=== PATIENT | female | born 1940 | race Caucasian/White ===

== ENCOUNTER → 2016-07-26 | Outpatient (CLI) | payer MEDICARE, BC ==
[~2016-07-26] MED LIST: APRESOLINE PO; ASPIRIN EC81 M1 PO; ASPIRIN PO; BYSTOLIC10 MG PO; BYSTOLIC20 MG PO; CALCIUM + D 6001 TA1 PO; CALTRATE 600+D PO; CARDIZEM SR PO; CATAPRES-TTS-20.2 MG PO; CERTAGEN PO; COREG PO; GLIPIZIDE10 MG PO; GLUCOTROL PO; HCTZ PO; HYDRALAZINE HCL50 MG PO; K-DUR20 ME1 PO; LEVOTHROID88 MCG PO; LIPITOR PO; LIPITOR40 MG PO; LISINOPRIL PO; LISINOPRIL-HCTZ1 T15 PO; LISINOPRIL-HCTZ1 T16 PO; METFORMIN HCL1000 M1 PO; METFORMIN PO; MICRO-K10 MEQ PO; NITROGYLCERIN SUBLINGUAL; NORVASC PO; NORVASC10 MG PO; POTASSIUM CHLO10 ME1 PO; SYNTHROID PO; UNITHROID PO; ZESTORETIC 20/21 TAB PO
--- NOTE | ~2016-07-26 | MY11 ---
[facility] A Service of [facility] RADIOLOGY TEXT RESULTS PATIENT: EVGENY COOK [facility] UNIT #: [id number] AGE: [address]: Mahamed Livingston MD SEX: F ORDER DR: [id number] [facility] [address] [place], [place] [address] [id number] O MR#: [id number] Acc #: [id number] NAME: EVGENY COOK : 1940 SEX: F STUDY DATE/TIME: 07/26/2016 12:43 [facility] ROOM: STUDY DESCRIPTION: MY Mammogram Screening Dig Giovany Attending Physician: Mahamed Livingston M.D. Ordering Physician: Mhaamed Livingston M.D. Primary Care Physician: Wally Persaud M.D. MEDICAL IMAGING REPORT This report is preliminary unless electronic signature is present EXAM Bilateral digital screening mammogram with CAD DATE 07/26/2016 HISTORY 76-year-old female with no personal or family history of breast cancer or current complaints. Has history of left breast cyst excision. COMPARISON Bilateral screening mammogram 07/04/2015, 06/17/2013 FINDINGS CC and MLO views were obtained of each breast utilizing digital technique and reviewed with an FDA-approved CAD device. Multiple round markers were placed over each breast denoting skin lesions. Linear marker was placed over the anterior upper outer left breast denoting surgical scars. Scattered fibroglandular densities are present bilaterally. No new or suspicious nodule is seen. Postsurgical architectural distortion in the left breast lateral hemisphere on the CC view, unchanged consistent with postsurgical finding. Benign vascular calcifications are present bilaterally. There are some scattered benign-appearing round calcifications in the superior hemisphere of the left breast on the MLO view. However, there is an indeterminate grouping of calcifications superior hemisphere left breast on the MLO view, denoted on online images by arrow. IMPRESSION 1. BIRADS 0. Additional imaging required. Indeterminate [facility] A Service of [facility] RADIOLOGY TEXT RESULTS PATIENT: EVGENY COOK [facility] 39 UNIT #: [id number] AGE: [address]: Mahamed Livingston MD SEX: F ORDER DR: microcalcifications in the superior left breast MLO view posterior third. Spot compression with high-resolution magnification views recommended the MLO plane, and if possible, extended craniocaudal lateral plane. Patients over the age of 40 are entered into a reminder system with target due date for the next mammogram. A result letter will also be sent to the patient. BIRADS: 0. Incomplete; Need additional imaging evaluation and/or prior mammograms for comparison. Dictated by... Radhika Yun M.D. THIS IS AN ELECTRONICALLY VERIFIED REPORT Radhika Yun M.D. at 07/27/2016 7:04 AM WOLFGANG/roberto carlos TD: 07/26/2016 15:11 JOB #: [id number] MEDICAL IMAGING REPORT Page 1 of 1 COPY
== END | disposition home or self-care (01) ==
LOC: CWCC 12:05
DX: Z12.31 Encounter for screening mammogram for malignant neoplasm of breast (principal); R92.0 Mammographic microcalcification found on diagnostic imaging of breast; Z98.890 Other specified postprocedural states
CPT/HCPCS: G0202

== ENCOUNTER → 2016-07-31 | Outpatient (CLI) | payer MEDICARE, BC ==
--- NOTE | ~2016-07-31 | MY7 ---
[facility] A Service of [facility] RADIOLOGY TEXT RESULTS PATIENT: EVGENY COOK LOCATION: [facility] : 39 UNIT #: [id number] AGE: [address]: Mahamed Livingston MD SEX: F ORDER DR: [id number] [facility] [address] [place], [place] [address] [id number] O MR#: [id number] Acc #: [id number] NAME: EVGENY COOK : 1940 SEX: F STUDY DATE/TIME: 07/31/2016 15:12 UNIT: [facility] ROOM: STUDY DESCRIPTION: MY Mammogram Dx Dig Lt Attending Physician: Mahamed Livingston M.D. Ordering Physician: Mahamed Livingston M.D. Primary Care Physician: Wally Persaud M.D. MEDICAL IMAGING REPORT This report is preliminary unless electronic signature is present EXAM Left breast digital diagnostic mammogram, 07/31/2016. HISTORY Indeterminate calcifications in the superior left breast on screening mammogram. COMPARISON Bilateral screening mammogram 06/17/2013, 07/06/2015. FINDINGS Spot magnification views were obtained of the superior left breast in the MLO plane, along with extended craniocaudal lateral views and true ML views of the left breast utilizing digital technique. A 3-mm grouping of indeterminate calcifications persists within the superior left breast, seen only in the MLO projection, not visualized in the extreme craniocaudal lateral projection. These are thought to be predominately coarse, but there is some linear configuration, and the findings are new in comparison to the 2013 exam. A benign etiology is favored. No associated mass lesion or architectural distortion is seen. IMPRESSION 1. Probably benign finding in left breast. Indeterminant small grouping of microcalcifications, superior left breast, seen only on the MLO view. Benign etiology favored. 6-month diagnostic left breast mammogram, to include spot magnification in the MLO plane, is recommended to document stability. The findings and recommendations were discussed directly with the patient in the Radiology Department today. She verbalized understanding. Patients over the age of 40 are entered into a reminder system with target due date for the next mammogram. A result letter will also be sent to the [facility] A Service of [facility] RADIOLOGY TEXT RESULTS PATIENT: EVGENY COOK LOCATION: [facility] : 39 UNIT #: [id number] AGE: [address]: Mahamed Livingston MD SEX: F ORDER DR: patient. LEFT BREAST BIRADS: 3 Probably benign finding; short interval followup suggested. Dictated by... Radhika Yun M.D. THIS IS AN ELECTRONICALLY VERIFIED REPORT Radhika Yun M.D. at 08/01/2016 7:11 AM WOLFGANG/rui TD: 07/31/2016 16:46 JOB #: [id number] MEDICAL IMAGING REPORT Page 1 of 1 COPY
== END | disposition home or self-care (01) ==
LOC: CMAM 14:46
DX: R92.1 Mammographic calcification found on diagnostic imaging of breast (principal)
CPT/HCPCS: G0206